=== PATIENT | male | born 1970 | race Two or more races ===

== ENCOUNTER → 2018-06-13 07:41 | Day surgery (SDC) | payer OTHER ==
--- NOTE | 2018-06-05 12:48 | HP ---
HISTORY AND PHYSICAL: DATE OF ADMISSION/SURGERY: 06/13/18 DATE OF OFFICE VISIT: 06/04/18 SURGEON: Alisson Nazario MD.* (DICTATED BY NELLIE VALERO) PROCEDURE: Left knee arthroscopy with partial meniscectomy, possible chondroplasty, possible synovectomy. CHIEF COMPLAINT: Left knee pain. HISTORY OF PRESENT ILLNESS: Mr. Young is a 48-year-old male with continued complaints of left knee pain. He has failed conservative treatment and elected to proceed with surgery. PAST MEDICAL HISTORY: Depression. PAST SURGICAL HISTORY: Denies. CURRENT MEDICATIONS: 1. Depakote 250 mg daily. 2. Naproxen 500 mg as needed. 3. Paxil 40 mg daily. ALLERGIES: No known drug allergies. FAMILY HISTORY: Denies. SOCIAL HISTORY: A 48-year-old gentleman lives with his and children. He does not smoke, use drugs or alcohol. REVIEW OF SYSTEMS: A complete 14-point review of systems was reviewed with the patient, it was all negative or noncontributory. He denies history of DVT, PE, hepatitis, HIV or anesthesia problems. PHYSICAL EXAMINATION GENERAL: He is well developed, well nourished in no acute distress. VITAL SIGNS: He stands 5 feet 8 inches tall, weighs 210 pounds, blood pressure 136/90. His heart rate is 80. HEENT: Normocephalic, atraumatic. NECK: Supple. No palpable lymph nodes. PULMONARY: The lungs are clear to auscultation bilaterally. CARDIO: Regular rate and rhythm. Strong S1, S2. ABDOMEN: Soft, nontender, nondistended. NEUROLOGICAL: He is alert and oriented x3. MUSCULOSKELETAL: Left lower extremity, the skin is intact. There are no open wounds or abrasions. He walks with a slightly antalgic type gait favoring the left leg. Positive Karen and Apley. Range of motion is 5 to 130 degrees of flexion. He has 2+ dorsalis pedis pulse and intact sensation. His lower extremity muscle group strengths are intact at 5/5. ASSESSMENT AND PLAN: Mr. Young is a 48-year-old gentleman with continued complaints of left knee pain secondary to a medial meniscus tear. He has elected to proceed with a left knee arthroscopy with partial meniscectomy, possible chondroplasty, possible synovectomy. Surgery is scheduled for with Dr. Nazario. Dr. Nazario discussed the risks and benefits of the surgery at today's visit and all of his questions were answered. He will follow up with Dr. Nazario 2 weeks after the surgery. NELLIE VALERO [id number]/[facility] #: [id number] MARTA
[~2018-06-13 07:41] MED LIST: Buffered Lidocaine 1% SYRIN* 1 ML/SYRINGE INTRADERM ONE; Bupivacaine 0.5%* 50 ML VIAL ONE; Dexamethasone IV* 4 MG/ML 1 ML (4 MG) IV SLOW PU ONE; Dexamethasone IV* 4 MG/ML 1 ML (4 MG) ONE; EPHEDrine (Pressors)* 50 MG/ML VIAL ONE; EPINEPHRINE 1 MG/ML 1 ML VIAL ONE; Famotidine IV* 10 MG/ML 2 ML (20 mg) IV ONE; Famotidine IV* 10 MG/ML 2 ML (20 mg) ONE; HYDROcodone/ACETAMIN 5-325 MG* 1 TAB PO PRN; Ketorolac INJ* 30 MG/ML 1 ML VIAL ONE; Lactated Ringers 1000 ML Bag* 1,000 ML IV SCH; Lidocaine 2% PF * 5 ML VIAL ONE; Midazolam* 1 MG/ML 5 ML VIAL (5 MG) ONE; Naloxone* 0.4 MG/ML 1 ML VIAL IV PRN; Ondansetron INJ* 2 MG/ML VIAL ONE; PROCHLORPERAZINE INJ 5 MG/ML 2 ML VIAL IV PRN; Propofol* 10 MG/ML 20 ML BTL ONE; ceFAZolin 2 GM PREMIX in ORs 2 GM/50 ML BAG IVPB ONE; fentaNYL* 50 MCG/ML 2 ML VIAL (100 MCG VIAL) IV PRN; fentaNYL* 50 MCG/ML 2 ML VIAL (100 MCG VIAL) ONE; methylPREDNISolone ACETATE 80* 80 MG/ML 1 ML VIAL ONE; oxyCODONE/Acetamin 5/325 MG* TAB ONE; oxyCODONE/Acetamin 5/325 MG* TAB PO PRN
--- NOTE | 2018-06-13 11:43 | OP ---
DATE OF OPERATION: 06/13/18 - [facility] DATE OF : 74 SURGEON: Alisson Nazario MD WOOL CLASSER: NELLIE Siu. Ms. Adrian did help throughout the procedure with preparation of the leg, wound retraction, manipulation of the knee, and wound closure. ANESTHESIOLOGIST: Dr. Cardenas. ANESTHESIA: General. PRE-OP DIAGNOSES: Left knee medial meniscal tear, osteoarthritis. POST-OP DIAGNOSES: Left knee longitudinal radial tear in the medial meniscus, radial tear in the lateral meniscus, severe degenerative osteoarthritis in medial and lateral compartment, anterior synovitis. OPERATIVE PROCEDURE: Left knee arthroscopy with partial medial meniscectomy, partial lateral meniscectomy, and anterior synovectomy. COMPLICATIONS: None. ESTIMATED BLOOD LOSS: Less than 25 cc. SPECIMENS: None. 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 At that time, he was diagnosed with medial meniscal tear and microtrabecular fractures of the lateral tibial plateau. He initially was to treat his knee pain conservatively despite mechanical symptoms. He presented back to my office in April 2018 with severe left knee pain and mechanical symptoms. He wished to proceed with knee arthroscopy, partial meniscectomy, possible chondroplasty, possible synovectomy. Informed consent was obtained from the patient. He understood the risks of surgery included, but were not limited to bleeding, infection, damage to nearby structures, continued pain, need for further surgery, retear of the meniscus, progression of arthritis, stroke, heart attack, blood clot, and . He wished to proceed. INTRAOPERATIVE FINDINGS: Intraoperatively, the patient was noted to have both radial and longitudinal tear in the medial meniscus involving the majority of the body and posterior horn. This was in the white-red zone. He was found to have a radial tear in the posterior horn of the lateral meniscus involving the white-red zone. This was displaced into the intracondylar notch region. The patient was noted to have grade 3 and 4 Outerbridge cartilage changes with exposed subchondral bone mainly along the medial and lateral tibial plateau. There were multiple small fragments of cartilage throughout the joint space, which were excised with irrigation and suction. There was a significant amount of anterior synovitis, which was also excised in the conservative fashion. DESCRIPTION OF PROCEDURE: Mr. Young was identified in the preanesthesia unit. His left lower extremity was marked as the correct operative side. Informed consent was signed and placed in the chart. The patient was taken to the operating room and placed under general anesthesia. Left lower extremity was prepped and draped in the usual sterile fashion. A pre-op time-out was made to correctly identify the patient, side, and site. Appropriate perioperative antibiotics were given within 1 hour of incision. A 0.5-cm anterolateral portal incision was made with a 10-blade and carried down through the capsule. Trocar was introduced. As soon as the light and water sources were turned on, there was immediate visualization of the supra- patellar pouch. A tour of the knee joint was performed. A suprapatellar pouch had no obvious abnormality other than multiple small pieces of cartilage, which were free floating loose bodies in the joint space. There was a large amount of anterior synovitis. Medial gutter showed no plica. Medial compartment showed exposed subchondral bone along the medial tibial plateau. This was grade 3 and 4 Outerbridge cartilage changes. There was radial and longitudinal type tear of the majority of the body and posterior horn of the medial meniscus involving the white- red zone. ACL and PCL appeared to be intact. The knee was placed in a [id number] position. There was a radial tear of the posterolateral meniscus displaced into the intracondylar notch region. There was exposed subchondral bone with grade 3 and 4 Outerbridge cartilage changes of the lateral tibial plateau cartilage. Lateral gutter showed no significant loose body or plica. Under direct visualization, a medial portal incision was made with a 15-blade. A probe was introduced. The second tour of the knee joint was performed. No additional findings were noted. Anterior synovectomy was performed in a conservative fashion using shaver and radiofrequency ablation wand. Next, the straight biter and shaver were used to perform partial medial meniscectomy. A smooth border of the medial meniscus was obtained in the white-red zone. Radiofrequency ablation wand was used to further smooth the edge of the meniscus. Further probing of the medial meniscus showed no additional tears. The knee was placed in the [id number] position. A shaver and straight biter were used to perform partial lateral meniscectomy in the white-red zone. A smooth border of the lateral meniscus was obtained. The knee was copiously irrigated with sterile saline. Multiple small fragments of cartilage were removed from the joint space. The instruments were removed and the incisions were closed using interrupted 3-0 nylon suture. Intra- articular injection of 80 mg of Depo-Medrol and 6 cc of 0.25% Marcaine was placed in the knee joint. Incisions were covered with Xeroform, 4x4s, and Webril. Herminio wrap and cold pack were placed on top. The patient's anesthesia was reversed without difficulty. He was taken to the PACU in stable condition. Intended weightbearing will be weightbearing as tolerated. Intended DVT prophylaxis will be aspirin. [id number]/[facility] #: [id number] MTDD
[2018-06-13 11:51] VITALS: BP 130/85
== END | disposition home or self-care (01) ==
LOC: OR 07:41
PROVIDERS: ATTEND Orthopaedic Surgery Adult Reconstructive Orthopaedic Surgery
DX: S83.242A Other tear of medial meniscus, current injury, left knee, initial encounter (principal); S83.282A Other tear of lateral meniscus, current injury, left knee, initial encounter; X58.XXXA Exposure to other specified factors, initial encounter; Y92.9 Unspecified place or not applicable; Y99.0 Civilian activity done for income or pay; M17.12 Unilateral primary osteoarthritis, left knee
CPT/HCPCS: A9270-GY; J0690; J1040; J1100; J1885; J2250; J2405; J2704; J3010

== ENCOUNTER 2019-01-14 07:22 | Emergency (ER) | payer OTHER ==
[2019-01-14 07:39] VITALS: BP 137/94
[2019-01-14] MEDS ORDERED: Tetan/Diph/Pertus SYR(Tdap)* 0.5 ML SYR(BOOSTRIX) use SYR contains LATEX IM ONE (07:45)
--- NOTE | 2019-01-14 08:14 | UC ---
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 THE PROGRAM LEAD WAS PRESENT AND VERIFIED THE DOG IS UP-TO-DATE ON VACCINATIONS. SINCE THE INCIDENT HIS HAND HAS BECOME RED AND SWOLLEN. NO FEVERS. UNKNOWN DATE OF LAST TETANUS. - History of Current Complaint Chief Complaint: [place] Stated Complaint: DOG BITE Time Seen by Provider: 01/14/19 07:44 Hx Obtained From: Patient Severity Currently: Moderate Severity Initially: Mild Pain Intensity: 5 Pain Scale Used: 0-10 Numeric Onset/Duration: Sudden Onset, Lasting Days, Still Present Type of Bite: Pet Has Animal Been Immunized?: Yes Character: Puncture Aggravating Factor(s): Nothing Alleviating Factor(s): Nothing Associated Signs And Symptoms: Positive: Erythema, Swelling Hx of Bite: Provoked by: - PETTING THE DOG Animal Available for Observation: Yes Animal Control Notified: Yes - Allergies/Home Medications Allergies/Adverse Reactions: Allergies Allergy/AdvReac Type Severity Reaction Status Date / Time No Known Allergies Allergy Verified 01/14/19 07:39 PMH/Surg Hx/FS Hx/Imm Hx Cardiovascular History: Hypertension - Surgical History Surgical History: Yes Surgery Procedure, Year, and Place: left knee torn meniscus - May 2018 - Family History Known Family History: Positive: None Family History: denies PFH of HTN,DM,CAD. - Social History Alcohol Use: Occasionally Substance Use Type: None Smoking Status (MU): Never Smoked Tobacco Have You Smoked in the Last Year: No - Immunization History Most Recent Tetanus Shot: unknown Review of Systems All Other Systems Reviewed And Are Negative: Yes Constitutional: Positive: Negative Skin: Positive: Other - PUNCTURE WOUNDS LEFT HAND WITH SWELLING AND ERYTHEMA Respiratory: Positive: Negative Cardiovascular: Positive: Negative Gastrointestinal: Positive: Negative Neurovascular: Positive: Negative Musculoskeletal: Positive: Edema Physical Exam Triage Information Reviewed: Yes Appearance: Well-Appearing, No Pain Distress, Well-Nourished Vital Signs: Initial Vital Signs Temp 97.7 F 01/14/19 07:34 Pulse 74 01/14/19 07:34 Resp 16 01/14/19 07:34 BP 137/94 01/14/19 07:34 Pulse Ox 97 01/14/19 07:34 Vital Signs Reviewed: Yes Eyes: Positive: Conjunctiva Clear ENT: Positive: Hearing grossly normal Neck: Positive: Supple Respiratory: Positive: No respiratory distress, No accessory muscle use Cardiovascular: Positive: Pulses Normal Abdomen Description: Positive: Soft Musculoskeletal: Positive: ROM Intact, Edema @ - LEFT HAND Neurological: Positive: Alert Psychological: Positive: Age Appropriate Behavior Skin: Positive: Other - LEFT HAND ERYTHEMA. PUNCTURE WOUND PROXIMAL TO LEFT 3RD MCP JOINT, IN 1ST INTERDIGITAL WEBSPACE AND DISTAL LEFT THUMB. Diagnostics - Radiology LEFT HAND XRAYS Radiology Interpretation Completed By: Radiologist Summary of Radiographic Findings: Soft tissue swelling most prominent over the dorsum of the hand and wrist. No subcutaneous emphysema, conspicuous foreign body, fracture, or malalignment. Bite Injury Course/Dx - Course Course Of Treatment: TDAP BOOSTED. AUGMENTIN BID X 10 DAYS. XRAY OBTAINED. SHOWS SOFT TISSUE SWELLING BUT NO BONY INJURY OR FB. WOUNDS CLEANSED AND DRESSED. F/U IF NOT IMPROVING AFTER 48 HOURS ON ABX. - Differential Dx/Diagnosis Provider Diagnosis: Dog bite of left hand with infection Discharge - Sign-Out/Discharge Documenting (check all that apply): Patient Departure All imaging exams completed and their final reports reviewed: Yes - Discharge Plan Condition: Stable Disposition: HOME Prescriptions: Amoxicillin/Clavulanate TAB* [Augmentin TAB 875*] 875 mg PO BID #20 tab Patient Education Materials: Animal Bite (ED) Referrals: Boo Eason MD [Primary Care Provider] - 3 Days Mikayla Sampson MD [Medical Doctor] - If Needed Additional Instructions: APPLY THIN LAYER ANTIBIOTIC OINTMENT UNDER BANDAGE FOR FIRST 2-3 DAYS ONLY. I RECOMMEND AVOIDING NEOMYCIN CONTAINING PRODUCTS THEY CAN BE HIGHLY ALLERGENIC. CHANGE BANDAGE DAILY AND NEEDED IF IT BECOMES SOILED OR WET. SEEK FOLLOW-UP IN THE ER IF YOU DEVELOP FURTHER SPREADING REDNESS OF THE SKIN, PURULENT DRAINAGE, FEVER, INCREASED PAIN OR ANY OTHER CONCERNING SYMPTOMS THAT ARE NOT IMPROVING AFTER 48 HOURS ON ANTIBIOTICS. KEEP HAND ELEVATED ABLE. TETANUS IMMUNIZATION GIVEN (TDAP): You have been given an immunization against tetanus. Please record this in your records. In general, a booster is needed only once every 10 years. The tetanus shot protects against tetanus or "lockjaw," which is a complication of certain wound infections (the tetanus shot cannot protect against the actual infection). The immunization site may become warm and red due to local reaction. If this occurs, apply warm compresses and take aspirin or ibuprofen to reduce inflammation and discomfort. Return for evaluation if the reaction becomes severe. - Billing Disposition and Condition Condition: STABLE Disposition: Home
== END 2019-01-14 08:41 | disposition home or self-care (01) ==
LOC: UCEAST 07:22
DX: S61.432A Puncture wound without foreign body of left hand, initial encounter (principal); L08.9 Local infection of the skin and subcutaneous tissue, unspecified; W54.0XXA Bitten by dog, initial encounter; Y93.89 Activity, other specified; Y92.009 Unspecified place in unspecified non-institutional (private) residence as the place of occurrence of the external cause; Y99.0 Civilian activity done for income or pay; Z23 Encounter for immunization; I10 Essential (primary) hypertension
CPT/HCPCS: 90471; 90715; 99213; G0463